=== PATIENT | male | born 1965 | race Caucasian/White ===

== ENCOUNTER 2017-01-28 13:39 | Inpatient (IN) | payer MEDICAID, OTHER ==
[~2017-01-28] VITALS: Ht 175.3 cm; Wt 67.2 kg
[2017-01-28 14:33] LABS: BASOPHILS % (AUTO) 1.1 % (0.0-2.0); EOSINOPHILS % (AUTO) 1.6 % (1.0-6.0); HEMATOCRIT 39.2 % (41-53); HEMOGLOBIN 12.5 g/dL (13.5-17.5); LYMPHOCYTES % (AUTO) 12.5 % (22.0-44.0); MEAN CORPUSCULAR HEMOGLOBIN 28.1 pg (26.0-34.0); MEAN CORPUSCULAR HGB CONC 31.9 G/dL (31.0-37.0); MEAN CORPUSCULAR VOLUME 88 fL (80-100); MONOCYTES # (AUTO) 0.7 K/uL (0.1-1.0); MONOCYTES % (AUTO) 8.2 % (2.0-9.0); NEUTROPHILS # (AUTO) 6.2 K/uL (1.8-7.7); NEUTROPHILS % (AUTO) 76.6 % (40.0-70.0); PLATELET COUNT (AUTO) 366 K/uL (150-450); RED BLOOD CELL COUNT(AUTO) 4.46 MIL/uL (4.50-5.90); RED CELL DISTRIBUTION WIDTH 15.5 % (11.5-14.5); WHITE BLOOD COUNT (AUTO) 8.1 K/uL (4.5-11.0)
[2017-01-28 14:42] LABS: ANION GAP 11 mmol/L (8-16); CALCIUM, TOTAL 8.9 mg/dL (8.8-10.5); CARBON DIOXIDE 25 mmol/L (22-29); CHLORIDE 104 mmol/L (98-107); GLOMERULAR FILTR. RATE CALC 53 mL/min (>60); POTASSIUM 3.8 mmol/L (3.5-5.1); SODIUM SERUM 140 mmol/L (136-145); UREA NITROGEN, BLOOD 15 mg/dL (7-18)
[2017-01-28 14:47] LABS: ALANINE AMINOTRANSFERASE 27 U/L (12-78); ALBUMIN 3.7 g/dL (3.4-5.0); ASPARTATE AMINOTRANSFERASE 35 U/L (15-37); BILIRUBIN,TOTAL 0.4 mg/dL (0.1-1.0); TOTAL PROTEIN, SERUM 7.4 g/dL (6.4-8.2)
[2017-01-28] MEDS ORDERED: LORazepam 2 MG TABLET PO PRN (15:00)
[2017-01-28] MEDS ORDERED: ZOLPIDEM TARTRATE 10 MG TABLET PO PRN (15:00)
[2017-01-28] MEDS ORDERED: HALOPERIDOL 5 MG TABLET PO PRN (15:00)
[2017-01-28 16:36] LABS: APPEARANCE,URINE CLOUDY (CLEAR); GLUCOSE, URINE (UA) NEGATIVE (NEGATIVE); KETONES,URINE NEGATIVE (NEGATIVE); OCCULT BLOOD,URINE SMALL (NEGATIVE); PH,URINE 6.5 (5.0-8.0); PROTEIN,URINE SEE CONFIRM (NEGATIVE)
[2017-01-28 17:31] LABS: ADD UA MICROSCOPIC YES; LEUKOCYTE ESTERASE ,URINE SMALL (NEGATIVE); SQUAMOUS EPITHELIAL CELL,UR Rare /LPF (None Seen); SULFOSALICYLIC ACID,URINE 2+ (Negative)
[2017-01-28 17:32] LABS: AMORPHOUS SEDIMENT,UR Few /LPF (None Seen)
[2017-01-28] MEDS ORDERED: DiphenhydrAMINE HCL 50 MG/ML VIAL ONE (17:40)
[2017-01-28] MEDS ORDERED: HALOPERIDOL LACTATE 5 MG/ML VIAL ONE (17:40)
[2017-01-28] MEDS ORDERED: LORazepam 2 MG/ML VIAL ONE (17:40)
[2017-01-28] MEDS ORDERED: DiphenhydrAMINE HCL 50 MG/ML VIAL IM ONE (17:45)
[2017-01-28] MEDS ORDERED: LORazepam 2 MG/ML VIAL IM ONE (17:45)
[2017-01-28] MEDS ORDERED: HALOPERIDOL LACTATE 5 MG/ML VIAL IM ONE (17:45)
[2017-01-28 18:43] VITALS: BP 130/69
[2017-01-29] MEDS ORDERED: PETROLATUM,WHITE 71 GM JELLY TP PRN (08:00)
[2017-01-29] MEDS ORDERED: BENZOCAINE/MENTHOL LOZENGE [8 LOZENGES/PACKET] MM PRN (08:00)
[2017-01-29] MEDS ORDERED: MAG HYDROX/AL HYDROX/SIMETH ES 30 ML SUSPENSION UDCUP PO PRN (08:00)
[2017-01-29] MEDS ORDERED: IBUPROFEN 600 MG TABLET PO PRN (08:00)
[2017-01-29] MEDS ORDERED: ONDANSETRON HCL 4 MG TABLET PO PRN (08:00)
[2017-01-29] MEDS ORDERED: ALBUTEROL SULFATE HFA 90 MCG/PUFF 8 GM INHALER IH PRN (08:00)
[2017-01-29] MEDS ORDERED: BACITRACIN 28.4 GM OINTMENT TP PRN (08:00)
[2017-01-29] MEDS ORDERED: MAGNESIUM HYDROXIDE SUSPENSION 30 ML UDCUP PO PRN (08:00)
[2017-01-29] MEDS ORDERED: CloNIDine HCL 0.1 MG TABLET PO PRN (08:00)
[2017-01-29] MEDS ORDERED: ACETAMINOPHEN 325 MG TABLET PO PRN (08:00)
[2017-01-29] MEDS ORDERED: LOPERAMIDE HCL 2 MG CAPSULE PO PRN (08:00)
[2017-01-29 08:31] VITALS: BP 136/89
[2017-01-29] MEDS ORDERED: CIPROFLOXACIN HCL 250 MG TABLET PO SCH (09:00)
[2017-01-29] MEDS: DOCUSATE SODIUM 100 MG CAPSULE PO SCH (09:20)
[2017-01-29] MEDS: OMEPRAZOLE 20 MG CAPSULE PO SCH (09:20)
[2017-01-29] MEDS: CIPROFLOXACIN HCL 500 MG TABLET PO SCH ×2 (09:20→18:09)
[2017-01-29] MEDS: LISINOPRIL 10 MG TABLET PO SCH (09:20)
[2017-01-29] MEDS: BACITRACIN 28.4 GM OINTMENT TP SCH ×2 (11:15→18:10)
[2017-01-29 16:31] VITALS: BP 119/74
[2017-01-29] MEDS: RisperiDONE 1 MG TABLET PO SCH (21:22)
[2017-01-30 06:52] LABS: ANION GAP 7 mmol/L (8-16); CALCIUM, TOTAL 9.1 mg/dL (8.8-10.5); CARBON DIOXIDE 26 mmol/L (22-29); CHLORIDE 105 mmol/L (98-107); CREATININE 1.09 mg/dL (0.60-1.30); GLOMERULAR FILTR. RATE CALC > 60 mL/min (>60); POTASSIUM 4.8 mmol/L (3.5-5.1); SODIUM SERUM 138 mmol/L (136-145); UREA NITROGEN, BLOOD 21 mg/dL (7-18)
[2017-01-30 08:10] VITALS: BP 124/69
[2017-01-30] MEDS: OMEPRAZOLE 20 MG CAPSULE PO SCH (09:32)
[2017-01-30] MEDS: BACITRACIN 28.4 GM OINTMENT TP SCH ×2 (09:32→16:05)
[2017-01-30] MEDS: LISINOPRIL 10 MG TABLET PO SCH (09:32)
[2017-01-30] MEDS: DOCUSATE SODIUM 100 MG CAPSULE PO SCH (09:32)
[2017-01-30] MEDS: RisperiDONE 1 MG TABLET PO SCH ×2 (09:32→20:02)
[2017-01-30] MEDS: CIPROFLOXACIN HCL 500 MG TABLET PO SCH ×2 (09:32→16:05)
[2017-01-30 16:31] VITALS: BP 111/76
[2017-01-30] MEDS: FERROUS SULFATE 325 MG EC TABLET PO SCH (19:16)
[2017-01-31] MEDS: FERROUS SULFATE 325 MG EC TABLET PO SCH ×2 (06:35→17:05)
[2017-01-31 09:10] VITALS: BP 129/75
[2017-01-31] MEDS: DOCUSATE SODIUM 100 MG CAPSULE PO SCH (09:35)
[2017-01-31] MEDS: CIPROFLOXACIN HCL 500 MG TABLET PO SCH ×2 (09:35→17:08)
[2017-01-31] MEDS: LISINOPRIL 10 MG TABLET PO SCH (09:35)
[2017-01-31] MEDS: OMEPRAZOLE 20 MG CAPSULE PO SCH (09:35)
[2017-01-31] MEDS: BACITRACIN 28.4 GM OINTMENT TP SCH ×2 (09:35→17:05)
[2017-01-31] MEDS: RisperiDONE 1 MG TABLET PO SCH (09:35)
[2017-01-31 16:00] VITALS: BP 134/74
[2017-01-31] MEDS: RisperiDONE 2 MG TABLET PO SCH (21:12)
[2017-02-01] MEDS: FERROUS SULFATE 325 MG EC TABLET PO SCH ×2 (06:33→16:49)
[2017-02-01 08:41] VITALS: BP 139/81
[2017-02-01] MEDS: BACITRACIN 28.4 GM OINTMENT TP SCH ×2 (09:15→16:49)
[2017-02-01] MEDS: DOCUSATE SODIUM 100 MG CAPSULE PO SCH (09:17)
[2017-02-01] MEDS: LISINOPRIL 10 MG TABLET PO SCH (09:17)
[2017-02-01] MEDS: RisperiDONE 2 MG TABLET PO SCH ×2 (09:17→20:17)
[2017-02-01] MEDS: OMEPRAZOLE 20 MG CAPSULE PO SCH (09:17)
[2017-02-01 16:52] VITALS: BP 113/56
[2017-02-02] MEDS: FERROUS SULFATE 325 MG EC TABLET PO SCH ×2 (06:56→18:02)
[2017-02-02 08:02] VITALS: BP 126/76
[2017-02-02] MEDS: OMEPRAZOLE 20 MG CAPSULE PO SCH (08:33)
[2017-02-02] MEDS: DOCUSATE SODIUM 100 MG CAPSULE PO SCH (08:33)
[2017-02-02] MEDS: LISINOPRIL 10 MG TABLET PO SCH (08:33)
[2017-02-02] MEDS: RisperiDONE 2 MG TABLET PO SCH ×2 (08:33→21:27)
[2017-02-02] MEDS: BACITRACIN 28.4 GM OINTMENT TP SCH ×2 (08:34→18:02)
[2017-02-02 16:38] VITALS: BP 116/74
[2017-02-03] MEDS: FERROUS SULFATE 325 MG EC TABLET PO SCH (06:59)
[2017-02-03 08:30] VITALS: BP 123/59
[2017-02-03] MEDS: RisperiDONE 2 MG TABLET PO SCH (10:01)
[2017-02-03] MEDS: LISINOPRIL 10 MG TABLET PO SCH (10:01)
[2017-02-03] MEDS: OMEPRAZOLE 20 MG CAPSULE PO SCH (10:01)
[2017-02-03] MEDS: BACITRACIN 28.4 GM OINTMENT TP SCH (10:01)
[2017-02-03] MEDS: DOCUSATE SODIUM 100 MG CAPSULE PO SCH (10:01)
[2017-02-03] MEDS ORDERED: RISP2 PO (11:14)
[2017-02-03] MEDS ORDERED: FERR-89 PO (11:15)
[2017-02-03] MEDS ORDERED: DSS100 PO (11:15)
[2017-02-03] MEDS ORDERED: OMEP20 PO (11:16)
[2017-02-03] MEDS ORDERED: LISI-661 PO (11:16)
== END 2017-02-03 12:10 | disposition home or self-care (01) | DRG 751 ==
LOC: EMS 13:40 → 3EC 17:27 → 3EI 17:27
PROVIDERS: ADMIT Psychiatry & Neurology Child & Adolescent Psychiatry; ATTEND Psychiatry & Neurology Child & Adolescent Psychiatry
DX: F29 Unspecified psychosis not due to a substance or known physiological condition (principal); N17.9 Acute kidney failure, unspecified; J44.9 Chronic obstructive pulmonary disease, unspecified; N39.0 Urinary tract infection, site not specified; F20.9 Schizophrenia, unspecified; I10 Essential (primary) hypertension; F14.10 Cocaine abuse, uncomplicated; E86.0 Dehydration; D64.9 Anemia, unspecified; F12.10 Cannabis abuse, uncomplicated; F15.10 Other stimulant abuse, uncomplicated; K59.00 Constipation, unspecified; Z59.0 Homelessness; Z71.51 Drug abuse counseling and surveillance of drug abuser; Z71.6 Tobacco abuse counseling; Z79.51 Long term (current) use of inhaled steroids; Z79.52 Long term (current) use of systemic steroids
CPT/HCPCS: 87086; 96372; 99285; G0480; J1200; J1630; J2060